=== PATIENT | female | born 1955 | race Caucasian/White ===

== ENCOUNTER 2016-06-07 14:42 | Emergency (ER) | payer OTHER ==
--- NOTE | 2016-06-10 18:24 | ER ---
ADMIT: 06/07/2016 RM/LOC: ER [facility] MR#: [id number] [id number] [place], [place] [id number] J[facility] VICKERS [address] [place] [address] Emergency Room Report SEX: F AGE: 60 : 1955 DATE: 06/07/2016 PRIMARY PROVIDER: Dr. Atwood and Dr. Smyth, [employer]. SUBJECTIVE: The patient is a 60-year-old female, who presents to emergency room with some vaginal bleeding. For about 2 weeks now, she has been feeling dizzy, weak, lightheaded, and cramping. Her vitals are within normal limits. She is allergic to clinda, levofloxacin, penicillin, and sulfa. She takes trazodone at bedtime. She has had a . PHYSICAL EXAMINATION: GENERAL: Alert and oriented. Well-nourished and well- developed female. Seems to be moderately anxious. On examination, she does have suprapubic tenderness. No lumbar discomfort. SKIN: Good color and turgor. EXTREMITIES: Nontender. NEUROLOGIC: Oriented x4. Mood and affect is appropriate. LABORATORY DATA: CBC within normal limits, 4.7 with a hemoglobin of 12.5, hematocrit is 38.7. Chemistry shows a glucose of 108, CRP is less than 0.29. Her pelvic ultrasound was limited exam, no abnormal findings. CLINICAL IMPRESSION: Abnormal vaginal bleed. Abdominal pain. Given [place]. Follow up with PCP, Dr. Smyth before her appointment in a couple of weeks. She needs to try to contact him tomorrow and get in for re-evaluation from the ER. The patient was given Dilaudid, Toradol while in the ER with a bag of fluids to help her improve the pain, but she says that the pain worsens, comes and goes. The pelvic examination was negative as well. LAURI Amador / Wayne Thompson MD / link JOB #: [id number] CC: Wayne Thompson MD, Attending Physician Carlos Atwood MD, Family Physician
== END 2016-06-07 18:45 | disposition home or self-care (01) ==
LOC: ER 14:42
DX: N93.9 Abnormal uterine and vaginal bleeding, unspecified (principal); R10.9 Unspecified abdominal pain; Z88.0 Allergy status to penicillin; Z88.2 Allergy status to sulfonamides; Z88.1 Allergy status to other antibiotic agents

== ENCOUNTER 2016-08-05 20:38 | Emergency (ER) | payer OTHER ==
--- NOTE | 2016-08-17 16:41 | ER ---
ADMIT: 08/05/2016 RM/LOC: ER [facility] MR#: [id number] [address] [facility] [address] JOHNSON VICKERS [address] [place] [address] Emergency Room Report SEX: F AGE: 60 : 1955 DATE: 08/05/2016 This 60-year-old with four weeks worth of left-sided flank pain. See T-sheet for history and physical. CT renal run is negative. UA had 15 rbc's and otherwise unremarkable. The patient is diagnosed with back pain. Given a prescription for Ultram and Zofran. Instructed to follow up with the primary doctor this week. Fausto Del Rio MD/ link JOB #: [id number] CC: Simon Antoine MD, Attending Physician Chip Smith MD, Family Physician
== END 2016-08-05 22:15 | disposition home or self-care (01) ==
LOC: ER 20:38
DX: M54.9 Dorsalgia, unspecified (principal); Z98.890 Other specified postprocedural states; Z79.899 Other long term (current) drug therapy; Z88.0 Allergy status to penicillin; Z88.1 Allergy status to other antibiotic agents; Z88.2 Allergy status to sulfonamides